=== PATIENT | male | born 1945 | race Caucasian/White ===

== ENCOUNTER → 2016-12-15 | Day surgery (SDC) | payer MEDICARE ==
[~2016-12-15] VITALS: Ht 177.8 cm; Wt 138.0 kg
== END | disposition home or self-care (01) ==
LOC: FAS 07:43
DX: M23.221 Derangement of posterior horn of medial meniscus due to old tear or injury, right knee (principal); M17.11 Unilateral primary osteoarthritis, right knee; M79.4 Hypertrophy of (infrapatellar) fat pad; M25.861 Other specified joint disorders, right knee; I10 Essential (primary) hypertension; E11.9 Type 2 diabetes mellitus without complications; Z79.84 Long term (current) use of oral hypoglycemic drugs; K21.9 Gastro-esophageal reflux disease without esophagitis; M10.9 Gout, unspecified; E66.9 Obesity, unspecified; Z68.41 Body mass index [BMI] 40.0-44.9, adult; M54.9 Dorsalgia, unspecified
CPT/HCPCS: J2704; J3010